=== PATIENT | female | born 1970 | race African-American/Black ===

== ENCOUNTER 2023-08-25 11:35 | Emergency (ER) | payer OTHER ==
[2023-08-25 11:43] VITALS: TEMP 97.6; BMI 26.4
[2023-08-25] MEDS ORDERED: KETOROLAC TROMETHAMINE 30 MG/1 ML VIAL ONE (12:25)
[2023-08-25] MEDS ORDERED: ACETAMINOPHEN INJECTION 100 ML IVPB ONE (12:25)
[2023-08-25] MEDS ORDERED: ONDANSETRON 4 MG/2 ML VIAL ONE (12:26)
[2023-08-25] MEDS: LACTATED RINGERS SOLUTION 1000 ML INFUS.BAG IV ONE (12:45)
[2023-08-25] MEDS: ACETAMINOPHEN 1000 MG/100 ML BAG IVPB ONE (12:45)
[2023-08-25] MEDS: KETOROLAC TROMETHAMINE 30 MG/1 ML VIAL IVPUSH ONE (12:46)
[2023-08-25 12:47] LABS: BASO % 0.7 % (0-2.0); EOS % 0.1 % (0-4.5); HEMATOCRIT 38.7 % (32.4-45.2); HEMOGLOBIN 13.1 GM/dL (10.7-15.3); MCH 30.3 pg (25.7-33.7); MCHC 33.7 g/dl (32.0-36.0); MEAN CELL VOLUME 89.9 fl (80-96); MEAN PLT VOLUME 7.6 fl (7.5-11.1); MONO % 2.5 % (3.8-10.2); NEUT % 80.7 % (42.8-82.8); PLATELET COUNT 300 10^3/uL (134-434); RBC 4.31 M/mm3 (3.60-5.2); WHITE BLOOD COUNT 11.3 K/mm3 (4.0-10.0)
[2023-08-25] MEDS: ONDANSETRON 4 MG/2 ML VIAL IVPUSH ONE (12:47)
[2023-08-25 12:54] LABS: PROTHROMBIN TIME (PATIENT) 11.3 SEC (9.7-13.0)
[2023-08-25 12:57] LABS: ACTIVATED PTT 31.1 SECONDS (25.2-36.5)
[2023-08-25 13:14] LABS: POTASSIUM 3.8 mmol/L (3.5-5.1)
[2023-08-25 13:16] LABS: ALBUMIN 3.9 g/dl (3.4-5.0); BLOOD UREA NITROGEN 12.6 mg/dL (7-18); CALCIUM 9.4 mg/dL (8.5-10.1)
[2023-08-25 13:19] LABS: CREATININE 0.7 mg/dL (0.55-1.3)
[2023-08-25 13:21] LABS: BILIRUBIN,TOTAL 0.5 mg/dL (0.2-1); TOT PROT 7.5 g/dl (6.4-8.2)
[2023-08-25] MEDS ORDERED: morphine SULFATE 4 MG/ML VIAL ONE (14:16)
[2023-08-25] MEDS: morphine CARPU-JECT 2 MG/1 ML DISP.SYRIN IVPUSH ONE (14:24)
[2023-08-25 15:09] LABS: EPI CELLS 5 /uL (0-25.1); HYALINE CASTS 1 /uL (0-3.1); PH,URINE 8.5 (5.0-8.0); URINE APPEARANCE CLEAR; URINE BACTERIA 17 /uL (0-1359); URINE BILIRUBIN NEGATIVE (NEGATIVE); URINE COLOR YELLOW; URINE GLUCOSE (UA) NEGATIVE (NEGATIVE); URINE KETONE 2+ (NEGATIVE); URINE LEUK ESTERASE TRACE (NEGATIVE); URINE NITRITE NEGATIVE (NEGATIVE); URINE PROTEIN NEGATIVE (NEGATIVE); URINE RBC 13 /uL (0-23.9); URINE UROBILINOGEN 0.2 mg/dL (0.2-1.0); URINE WBC 5 /uL (0-25.8)
[2023-08-25 18:53] VITALS: BP 135/61; PULSE 71; RESP 20
[2023-08-25] MEDS: LIDOCAINE 4% PATCH TP ONE (20:58)
[2023-08-25] MEDS ORDERED: LIDOCAINE 4% PATCH TP ONE (21:00)
[2023-08-25] MEDS ORDERED: LIDOCAINE PATCH REMOVAL MC SCH (22:00)
== END 2023-08-25 21:07 | disposition home or self-care (01) ==
LOC: JER 11:35
PROC: 3E033NZ Introduction of Analgesics, Hypnotics, Sedatives into Peripheral Vein, Percutaneous Approach (ICD-10-PCS; principal; 2023-08-25)
PROC: 3E0333Z Introduction of Anti-inflammatory into Peripheral Vein, Percutaneous Approach (ICD-10-PCS; 2023-08-25)
PROC: 3E033GC Introduction of Other Therapeutic Substance into Peripheral Vein, Percutaneous Approach (ICD-10-PCS; 2023-08-25)
PROC: 3E033NZ Introduction of Analgesics, Hypnotics, Sedatives into Peripheral Vein, Percutaneous Approach (ICD-10-PCS; 2023-08-25)
DX: M54.9 Dorsalgia, unspecified (principal); R10.31 Right lower quadrant pain
CPT/HCPCS: 36415; 71275-TC; 74174-TC; 74176-TC; 80053; 81003; 85025; 85610; 85730; 87077; 87086; 93005; 93010; 99285-25; J0131; Q9967